=== PATIENT | male | born 2000 | race Caucasian/White ===

== ENCOUNTER 2019-09-11 14:40 | Emergency (ER) | payer OTHER, SELFPAY ==
--- NOTE | ~2019-09-11 | CT_ITS ---
EXAMINATION: CT BRAIN W/O DATE: 09/11/2019 17:13 INDICATION: Dizziness and blurred vision TECHNIQUE: Computed tomography (CT) of the head was performed without intravenous contrast. The dose- length product was 681.00 mGy-cm. The mA was adjusted according to patient size. Iterative reconstruc tion technique was employed. COMPARISON: No prior studies for comparison. FINDINGS: Normal brain parenchymal volume for age. Normal frias-white differentiation. No acute intrac ranial hemorrhage, infarction, mass or mass effect. No ventriculomegaly or midline shift. Midline sagittal images demonstrate a normal corpus callosum, c raniovertebral junction and sella turcica. Basilar cisterns are patent. Paranasal sinuses and mastoids are pneumatized. No depressed skull fractures. IMPRESSION: 1. No acute intracranial abnormality. Reviewed, dictated and finalized at location A. RATING CONSULTANT
--- NOTE | ~2019-09-11 | XR_ITS ---
EXAMINATION: XR chest 2V DATE: 09/11/2019 15:52 INDICATION: Shortness of breath and cough. TECHNIQUE: Frontal and lateral views of the chest were obtained. COMPARISON: None. FINDINGS: The chest demonstrates clear lungs without pneumonia, pleural effusion, or pneumothorax. Th e heart size is normal. IMPRESSION: 1. No acute cardiopulmonary disease. Reviewed, dictated and finalized at location A. INTERNSHIP
[2019-09-11 14:46] VITALS: BP 132/88; PULSE 105; RESP 18; TEMP 36.7; O2SAT 100
--- NOTE | 2019-09-11 14:58 | ECG_ITS ---
Measurements Intervals [place] Rate: 99 P: 43 [place]: 110 QRS: -29 QRSD: 90 T: -26 QT: 349 QTc: 448 Interpretive Statements SINUS RHYTHM WITH SHORT [place] INTERVAL INCOMPLETE RIGHT BUNDLE BRANCH BLOCK T WAVE ABNORMALITY IN ANTERIOR LEADS- CONSIDER ISCHEMIA BASELINE ARTIFACT- III ABNORMAL ECG Electronically Signed On 09-11-2019 19:41:20 INCOME TAX ADMINISTRATOR by Hiren Dunn D.O.
[2019-09-11 15:05] VITALS: BP 106/72; BP 111/77; PULSE 110
--- NOTE | 2019-09-11 15:05 | ED.SYNCOPE ---
HPI - Syncope General Chief Complaint: Syncope Stated Complaint: syncopal episode Time Seen by Provider: 09/11/19 14:53 Source: patient Mode of arrival: ambulatory Limitations: no limitations History of Present Illness HPI narrative: Pt is a 19 y/o male who presents to the ED with c/o a syncopal episode that happened in class today. Pt states that he has been dealing with flu-like Sx for the last week. He reports fever, chills, vomiting, congestion and a cough. He started feeling better yesterday so he went to exercise, but he felt worse after his exercise. Pt was in class today and he felt nauseas. When he stood up from his chair he felt dizzy and he had a syncopal episode, where he hit his head. He notes that he has LOC for a couple of seconds and he was helped up by his classmates. He denies CP or palpitations. Pt had a smoothie this morning. complaint: loss of consciousness -: second(s) Prodromal symptoms: other (dizziness) Witnessed: Yes - by Bystander Context: standing up Injuries sustained associated with event: head Current symptoms: back to baseline Related Data Allergies Allergy/AdvReac Type Severity Reaction Status Date / Time No Known Allergies Allergy Verified 09/11/19 14:52 Review of Systems Review of Systems: All systems reviewed & are unremarkable except as noted in HPI and below Constitutional: Constitutional: Reports chills and Reports fever(s) Cardiovascular: Cardiovascular: Denies chest pain and Denies rapid heart rate Respiratory: Respiratory: Reports chest congestion and Reports cough Gastrointestinal: Gastrointestinal: Reports nausea and Reports vomiting Neurologic: Reports dizziness and Reports syncope PMFSH Past Medical History Medical History (Updated 09/11/19 @ 17:27 by Norm Islas MD) Anxiety Surgical History Surgical History (Updated 09/11/19 @ 15:17 by Haritha Villalobos) H/O adenoidectomy H/O myringotomy Family History Family History (Updated 04/12/18 @ 15:23 by DOCTOR UNKNOWN) Other Family history of arthritis Social History Social History Smoking status: Never smoker Alcohol intake: never Gender identity (if verbalized by the patient): Male Exam Narrative: Exam Narrative: GENERAL: Well-appearing, well-nourished, and in no acute distress. HEAD: Normocephalic, atraumatic. EYES: PERRLA and EOMI. ENT: Nares clear, no rhinorrhea or epistaxis. Mucous membranes moist. NECK: Supple. CHEST: Clear to auscultation. No respiratory distress. HEART: Regular rate and rhythm. No murmur heard. Normal peripheral pulses. ABDOMEN: Soft, nontender, nondistended, normal active bowel sounds. EXTREMITIES: Normal range of motion. No edema. SKIN: Warm, dry, no rash. NEURO: No focal deficits. Alert and oriented x3. PSYCH: Normal mood and affect. Course Course Emergency Course: Patient states he is feeling better, discussed lab, CT findings with the patient and the family. Advised him to drink plenty of fluids. Take antibiotic as prescribed. Vital Signs Vital signs: Vital Signs Temperature 36.7 C 09/11/19 14:46 Pulse Rate 105 H 09/11/19 14:46 Respiratory Rate 18 09/11/19 14:46 Blood Pressure 132/88 09/11/19 14:46 Pulse Oximetry 100 09/11/19 14:46 Temperature 36.7 C 09/11/19 14:46 Pulse Rate 104 H 09/11/19 16:53 Respiratory Rate 17 09/11/19 16:53 Blood Pressure 107/70 09/11/19 16:53 Pulse Oximetry 99 09/11/19 16:53 MDM - Syncope Lab Data Result diagrams: 09/11/19 15:00 09/11/19 15:00 Labs: Lab Results 09/11/19 09/11/19 Range/Units 15:00 15:00 WBC 17.1 H (4.5-10.0) K/mm3 RBC 6.00 (4.6-6.20) M/mm3 Hgb 17.4 (14.0-18.0) g/dL Hct 50.0 (42.0-52.0) % MCV 83.3 (80-100) fl MCH 29.0 (26-34) pg MCHC 34.8 (32-36) g/dl RDW 12.2 (11.5-14.5) % Plt Count 276 (150-375) k/mm3 MPV 9.5 (7.4-10.4) fl Immature Gr
[2019-09-11 15:07] VITALS: PULSE 97
[2019-09-11 15:13] LABS: Basophils Absolute Auto 0.1 K/mm3 (0.0-0.1); Basophils Percent Auto 0.3 % (0.2-1.2); Eosinophils Percent Auto 0.2 % (0-4.4); Hemoglobin 17.4 g/dL (14.0-18.0); Immature Granulocyte Absolute 0.06 K/mm3 (0.00-0.031); Immature Granulocyte Percent A 0.4 % (0-0.5); Lymphocytes Absolute Auto 1.23 K/mm3 (0.9-3.2); Lymphocytes Percent Auto 7.2 % (18.3-44.2); Mean Corpuscular HGB Conc 34.8 g/dl (32-36); Mean Corpuscular Volume 83.3 fl (80-100); Mean Platelet Volume 9.5 fl (7.4-10.4); Monocytes Absolute Auto 1.7 K/mm3 (0.1-0.6); Monocytes Percent Auto 9.7 % (2.6-8.5); Neutrophils Percent Auto 82.2 % (45.5-73.1); Platelet Count Result 276 k/mm3 (150-375); Red Cell Distribution Width 12.2 % (11.5-14.5); White Blood Count 17.1 K/mm3 (4.5-10.0)
[2019-09-11] MEDS: SODIUM CHLORIDE 0.9% IV 1,000 ML 999 ML IV CONT (15:18)
[2019-09-11 15:25] LABS: Blood Urea Nitrogen 18 mg/dL (9-20); Calcium 9.4 mg/dL (8.4-10.2); Carbon Dioxide 25 mmol/L (22-30); Chloride 95 mmol/L (98-107); Estimated CRCL calculation 111 ml/min; Estimated Glomerular Filt Rate > 60; Glucose 119 mg/dL (75-110); Potassium 4.1 mmol/L (3.4-5.0); Sodium 134 mmol/L (137-145)
[2019-09-11 16:53] VITALS: BP 107/70; PULSE 104; RESP 17; O2SAT 99
[2019-09-11 17:36] VITALS: BP 110/59; PULSE 96; RESP 12; O2SAT 100
--- NOTE | 2019-09-11 19:43 | PC.NURSE ---
[facility] called and stated the patient has an allergy to Augmentin and that was what was prescribed to him. Spoke with Rosalina REDDY who recommended doxycycline 100mg po BID x 7 days. Will add augmentin to the patient's allergy list.
== END 2019-09-11 17:40 | disposition home or self-care (01) ==
PROVIDERS: Emergency Provider Family Medicine
DX: R55 Syncope and collapse (principal); J40 Bronchitis, not specified as acute or chronic; I45.10 Unspecified right bundle-branch block; R94.31 Abnormal electrocardiogram [ECG] [EKG]
CPT/HCPCS: 36415; 70450; 71046; 80048; 85025; 93005; 96360; 96361; 99284; J7030

== ENCOUNTER → 2021-01-15 09:19 | Outpatient (CLI) | payer OTHER, SELFPAY ==
--- NOTE | ~2021-01-15 | MR_ITS ---
EXAMINATION: MR cervical spine wo con DATE: 01/15/2021 09:57 INDICATION: Neck pain. Degeneration of cervical intervertebral disc. TECHNIQUE: Magnetic resonance imaging (MRI) of the cervical spine was performed without intravenous c ontrast. Sequences included sagittal T2-weighted FSE, sagittal STIR FSE, sagittal T1-weighted FSE, ax ial MERGE, and axial T2-weighted FSE. COMPARISON: None FINDINGS: Bone alignment is normal. Vertebral body heights and intervertebral disc heights are normal . The spinal cord signal intensity is normal. The following disc levels are specifically discussed: C2-C3: The disc does not extend beyond the endplate margin. There is no uncovertebral joint osteoarth ritis. There is no facet joint osteoarthritis. There is no neural foraminal stenosis. There is no jordan tral canal stenosis. C3-C4: The disc does not extend beyond the endplate margin. There is mild left uncovertebral joint os teoarthritis. There is no facet joint osteoarthritis. There is no neural foraminal stenosis. There is no central canal stenosis. C4-C5: The disc does not extend beyond the endplate margin. There is mild left uncovertebral joint os teoarthritis. There is no facet joint osteoarthritis. There is no neural foraminal stenosis. There is no central canal stenosis. C5-C6: There is a right foraminal extrusion. There is no uncovertebral joint osteoarthritis. There is no facet joint osteoarthritis. There is mild right neural foraminal stenosis. There is no central ca nal stenosis. C6-C7: The disc does not extend beyond the endplate margin. There is mild bilateral uncovertebral arcadio nt osteoarthritis. There is no facet joint osteoarthritis. There is mild left neural foraminal stenos is. There is no central canal stenosis. C7-T1: The disc does not extend beyond the endplate margin. There is mild bilateral uncovertebral arcadio nt osteoarthritis. There is mild bilateral facet joint osteoarthritis. There is mild bilateral neural foraminal stenosis. There is no central canal stenosis. IMPRESSION: 1. Mild cervical spondylosis. Reviewed, dictated and finalized at location A.
== END ==
PROVIDERS: PCP Nurse Practitioner Family; Visit Provider Nurse Practitioner Family
DX: M50.30 Other cervical disc degeneration, unspecified cervical region (principal); M47.892 Other spondylosis, cervical region
CPT/HCPCS: 72141

== ENCOUNTER 2021-01-24 23:07 | Emergency (ER) | payer OTHER, SELFPAY ==
[2021-01-24] VITALS (7 sets, daily range): BP systolic 132–155; BP diastolic 84–97; PULSE 99–117; RESP 12–18; TEMP 37.1; O2SAT 100
--- NOTE | ~2021-01-24 | XR_ITS ---
EXAMINATION: XR chest 1V portable 01/24/2021 23:40 INDICATION: Near syncope and fever PROCEDURE: AP chest COMPARISON: 09/11/2019 FINDINGS: The lungs are clear. The cardiomediastinal silhouette is within normal limits. There are no pleural effusions. There is no pneumothorax suspected. IMPRESSION: 1: NO ACUTE CARDIOPULMONARY DISEASE. Reviewed, dictated and finalized at location A.
--- NOTE | 2021-01-24 23:16 | ECG_ITS ---
Measurements Intervals [place] Rate: 100 P: 47 VT: 116 QRS: -18 QRSD: 102 T: 1 QT: 343 QTc: 443 Interpretive Statements SINUS TACHYCARDIA WITH SHORT [place] INTERVAL T WAVE ABNORMALITY IN ANTERIOR LEADS- CONSIDER ISCHEMIA BASELINE ARTIFACT- I, II, III, AVR, AVF, V2-V6 ABNORMAL ECG Electronically Signed On 01-25-2021 5:46:23 CDT by Hiren Dunn D.O.
[2021-01-24] MEDS: SODIUM CHLORIDE 0.9% IV 1,000 ML 999 ML IV CONT (23:25)
--- NOTE | 2021-01-24 23:29 | ED.GENADULT ---
HPI - General Adult General Chief complaint: Fever Stated complaint: fever, heart racing, near syncopy Time Seen by Provider: 01/24/21 23:13 History of Present Illness HPI narrative: Patient 20-year-old gentleman who presents the emergency department with chief complaint of fever and near syncope. The patient reports that today he started running a fever felt extremely hot and as he was getting up started to feel very lightheaded the patient states he felt as though his heart was racing and then it slowed down and the state patient states that he felt like he was about to pass out. Patient denies chest pain denies abdominal pain denies of vomiting states that he has had a sore throat for the last couple of days but that is currently improved now patient denies prior COVID-19 infection reports that he is not been vaccinated to COVID-19. Related Data Allergies Allergy/AdvReac Type Severity Reaction Status Date / Time amoxicillin [From Augmentin] AdvReac Unknown Verified 09/11/19 19:45 clavulanic acid AdvReac Unknown Verified 09/11/19 19:45 [From Augmentin] Review of Systems Review of Systems: Narrative: A 10 system review of systems was completed on the patient and is negative except for what is stated in the HPI. Nursing and ancillary documentation was reviewed. PMFSH Past Medical History Medical History Anxiety Surgical History Surgical History H/O adenoidectomy H/O myringotomy Family History Family History Other Family history of arthritis Social History Social History Smoking status: Never smoker Alcohol intake: never Gender identity (if verbalized by the patient): Male Exam Narrative: Exam Narrative: GENERAL: Well-appearing, well-nourished, and in no acute distress. HEAD: Normocephalic, atraumatic. EYES: PERRLA and EOMI. ENT: Nares clear, no rhinorrhea or epistaxis. Mucous membranes moist. NECK: Supple. CHEST: Clear to auscultation. No respiratory distress. HEART: Regular rate and rhythm. No murmur heard. Normal peripheral pulses. ABDOMEN: Soft, nontender, nondistended, normal active bowel sounds. EXTREMITIES: Normal range of motion. No edema. SKIN: Warm, dry, no rash. NEURO: No focal deficits. Alert and oriented x3. PSYCH: Normal mood and affect. Course Vital Signs Vital signs: Vital Signs Temperature 37.1 C 01/24/21 23:14 Pulse Rate 99 01/24/21 23:14 Respiratory Rate 18 01/24/21 23:14 Blood Pressure 155/97 H 01/24/21 23:14 Pulse Oximetry 100 01/24/21 23:14 Temperature 37.1 C 01/24/21 23:14 Pulse Rate 95 01/25/21 00:34 Respiratory Rate 16 01/25/21 00:34 Blood Pressure 131/85 01/25/21 00:16 Pulse Oximetry 100 01/25/21 00:34 Medical Decision Making Vital Signs Vital Signs: Vital Signs Temperature 37.1 C 01/24/21 23:14 Pulse Rate 99 01/24/21 23:14 Respiratory Rate 18 01/24/21 23:14 Blood Pressure 155/97 H 01/24/21 23:14 Pulse Oximetry 100 01/24/21 23:14 Temperature 37.1 C 01/24/21 23:14 Pulse Rate 95 01/25/21 00:34 Respiratory Rate 16 01/25/21 00:34 Blood Pressure 131/85 01/25/21 00:16 Pulse Oximetry 100 01/25/21 00:34 Lab Data Result diagrams: 01/24/21 23:25 01/24/21 23:25 Labs: Lab Results 01/24/21 01/24/21 01/24/21 Range/Units 23:25 23:25 23:25 WBC 10.7 H (4.5-10.0) K/mm3 RBC 5.48 (4.6-6.20) M/mm3 Hgb 16.2 (14.0-18.0) g/dL Hct 46.5 (42.0-52.0) % MCV 84.9 (80-100) fl MCH 29.6 (26-34) pg MCHC 34.8 (32-36) g/dl RDW 12.0 (11.5-14.5) % Plt Count 213 (150-375) k/mm3 MPV 8.9 (7.4-10.4) fl Immature Gran % (Auto) 0.3 (0-0.5) % Neut % (Auto) 70.0 (45.5-73.1) % Ly
[2021-01-24 23:34] LABS: Basophils Percent Auto 0.3 % (0.2-1.2); Eosinophils Percent Auto 0.4 % (0-4.4); Hematocrit 46.5 % (42.0-52.0); Hemoglobin 16.2 g/dL (14.0-18.0); Immature Granulocyte Absolute 0.03 K/mm3 (0.00-0.031); Immature Granulocyte Percent A 0.3 % (0-0.5); Lymphocytes Absolute Auto 1.91 K/mm3 (0.9-3.2); Lymphocytes Percent Auto 17.8 % (18.3-44.2); Mean Corpuscular HGB Conc 34.8 g/dl (32-36); Mean Corpuscular Hemoglobin 29.6 pg (26-34); Mean Corpuscular Volume 84.9 fl (80-100); Mean Platelet Volume 8.9 fl (7.4-10.4); Monocytes Absolute Auto 1.2 K/mm3 (0.1-0.6); Monocytes Percent Auto 11.2 % (2.6-8.5); Neutrophils Absolute Auto 7.5 K/mm3 (1.3-6.7); Platelet Count Result 213 k/mm3 (150-375); Red Blood Count 5.48 M/mm3 (4.6-6.20); White Blood Count 10.7 K/mm3 (4.5-10.0)
[2021-01-24 23:40] LABS: Alanine Aminotransferase 19 U/L (4-50); Albumin Level 4.7 g/dL (3.5-5.1); Alkaline Phosphatase 108 U/L (38-126); Anion Gap 13 mmol/L (8-16); Aspartate Amino Transferase 31 U/L (17-59); Bilirubin,Total 0.8 mg/dL (0.2-1.3); Blood Urea Nitrogen 13 mg/dL (9-20); Calcium 9.1 mg/dL (8.4-10.2); Carbon Dioxide 23 mmol/L (22-30); Chloride 98 mmol/L (98-107); Estimated CRCL calculation 84 ml/min; Estimated Glomerular Filt Rate > 60; Glucose 115 mg/dL (75-110); Lactic Acid Reflex 1.3 mmol/L (0.7-2.1); Potassium 3.5 mmol/L (3.4-5.0); Sodium 134 mmol/L (137-145)
[2021-01-25 00:03] VITALS: PULSE 93; RESP 14
[2021-01-25 00:15] VITALS: PULSE 101; RESP 12; O2SAT 100
[2021-01-25 00:16] VITALS: BP 131/85; PULSE 98; RESP 12; O2SAT 100
[2021-01-25 00:34] VITALS: PULSE 95; RESP 16; O2SAT 100
[2021-01-25 00:43] LABS: Add Urine Microscopic? YES; Appearance Urine Clear (Clear); Bilirubin Urine Negative (Negative); Blood Urine Negative (Negative); Color Urine Yellow (Yellow); Glucose Urine UA Negative (Negative); Ketones Urine 2+ mg/dL (Negative); Leukocyte Esterase Ur Negative LEU/UL (Negative); Nitrate Urine Negative (Negative); Protein Urine 1+ mg/dL (Negative); RBC Urine 0-2 /hpf (0-2); Urobilinogen Urine Negative mg/dL (<2.0); WBC Urine 0-3 /hpf
[2021-01-25 01:22] VITALS: BP 131/80; PULSE 97; RESP 15; O2SAT 100
[2021-01-25 17:43] LABS: SARS-CoV-2 RNA PCR Negative
== END 2021-01-25 01:22 | disposition home or self-care (01) ==
PROVIDERS: Emergency Provider Emergency Medicine; PCP Nurse Practitioner Family
DX: Z20.822 Contact with and (suspected) exposure to COVID-19 (principal); B34.9 Viral infection, unspecified; R55 Syncope and collapse
CPT/HCPCS: 36415; 71045; 80053; 81001; 83605; 85025; 87081; 87804; 87880; 93005; 96360; 99283; C9803; J7030; U0003; U0005